=== PATIENT | male | born 1975 | race Caucasian/White ===

== ENCOUNTER 2018-02-26 12:38 | Emergency (ER) | payer OTHER ==
[2018-02-26] MEDS ORDERED: Lidocaine 1% w/Epinephrine 1:100K 20 ML VIAL ONE (13:45)
[2018-02-26] MEDS ORDERED: Bacitracin Zinc 1 Packet ONE (14:29)
== END 2018-02-26 14:46 | disposition home or self-care (01) ==
LOC: SCSER 12:38
DX: S81.031A Puncture wound without foreign body, right knee, initial encounter (principal); I10 Essential (primary) hypertension; Z79.899 Other long term (current) drug therapy; W26.8XXA Contact with other sharp object(s), not elsewhere classified, initial encounter
CPT/HCPCS: 99283; J2001

== ENCOUNTER 2018-03-10 08:39 | Outpatient (CLI) | payer OTHER ==
--- NOTE | 2018-03-10 10:18 | RAD ---
RIGHT KNEE 4 VIEWS: HISTORY: Evaluate for possible foreign body. Possible mesquite thorn in the right knee. The region of concer n is marked with a B-B. FINDINGS: There is evidence of previous ACL repair. There is soft tissue swelling along the anterior infrapate llar soft tissues. At the level of B-B, there is no radiopaque foreign body. No joint effusion. No fracture. IMPRESSION: Soft tissue swelling without evidence of foreign body. Correlate clinically. Consider CT if clinica lly warranted. POS: [facility]
== END 2018-03-10 08:40 | disposition home or self-care (01) ==
LOC: SCSRAD 08:39
PROVIDERS: ATTEND Family Medicine
DX: S81.041 Puncture wound with foreign body, right knee (principal); M79.89 Other specified soft tissue disorders